=== PATIENT | male | born 1970 | race Two or more races ===

== ENCOUNTER 2021-04-26 19:07 | Emergency (ER) | payer OTHER ==
[~2021-04-26] VITALS: Ht 182.9 cm; Wt 97.5 kg
[2021-04-26 19:09] VITALS: BP 161/98
--- NOTE | 2021-04-26 20:25 | NUR ---
PT AMBULATED TO BED 8
--- NOTE | 2021-04-26 21:00 | NUR ---
PATIENT BIB SELF FROM HOME FOR C/O RECTAL PAIN X 1.5 MONTHS. PATIENT STATES," I RAN OUT OF PAIN MEDICATIONS AND I CAN;T STAND THE PAIN. PATIENT STATES HAS ANAL FISSURE AND HAS A SCHEDULED SURGERY IN TWO WEEKS FOR REPAIR. PATIENT NOTED WITH PURLUENT DRAINAGE COMING FROM RECTUM. PATIENT AFEBRILE. MEDHX: ANAL FISSURE NKA
--- NOTE | 2021-04-26 21:00 | NUR ---
ERMD AT BEDSIDE FOR MEDICAL EXAM. Female Supervisor [employer] accompanied female patient for Rectal Exam.
[2021-04-26] MEDS ORDERED: HYDROcodone/APAP 5/325 MG 1 TAB TAB PO ONE (21:30)
[2021-04-26] MEDS ORDERED: AMOXIL/CLAVULANATE 875/125 MG 1 TAB PO ONE (21:30)
[2021-04-26] MEDS ORDERED: ACET-8386 PO (21:44)
[2021-04-26] MEDS ORDERED: AMOX-1000 PO (21:44)
[2021-04-26 22:04] VITALS: BP 148/86
--- NOTE | 2021-04-26 22:04 | NUR ---
Patient discharged with v/s stable. Written and verbal after care instructions given and explained. Patient alert, oriented and verbalized understanding of instructions. All questions addressed prior to discharge. ID band removed. Patient advised to follow up with PMD. Rx of NORCO 5-325, AUGMENTIN given. Patient educated on indication of medication including possible reaction and side effects. Opportunity to ask questions provided and answered. Patient is currently ambulatory with steady gait, able to walk unassisted. Positive gag reflex. Is not driving self for discharge out of facility.
== END 2021-04-26 22:04 | disposition home or self-care (01) ==
LOC: MED 19:07
DX: K61.1 Rectal abscess (principal)
CPT/HCPCS: 99283

== ENCOUNTER 2021-05-12 05:24 | Day surgery (SDC) | payer OTHER, SELFPAY ==
[~2021-05-12] VITALS: Ht 182.9 cm; Wt 95.3 kg
[~2021-05-12 05:24] MED LIST: ACET-8386 PO; AMOX-1000 PO
[2021-05-12] MEDS ORDERED: GELATIN SPONGE 100 1 SPG TP ONE (08:00)
[2021-05-12] MEDS ORDERED: BUPIVACAINE-MPF/EPI 0.25% 30 ML VIAL INJ ONE (08:00)
[2021-05-12] MEDS ORDERED: LIDOCAINE 1% 500 MG/50 ML VIAL ONE (08:00)
[2021-05-12] MEDS ORDERED: HYDROGEN PEROXIDE 3% 240 ML BTL TP ONE (08:01)
[2021-05-12] MEDS ORDERED: MIDAZOLAM 2 MG/2 ML VIAL ONE (08:35)
[2021-05-12] MEDS ORDERED: fentaNYL citrate 0.05 MG/ML VIAL ONE (08:35)
[2021-05-12] MEDS ORDERED: SUCCINYLCHOLINE CHLORIDE 200 MG/10 ML VIAL IVP ONE (08:38)
[2021-05-12] MEDS ORDERED: PROPOFOL 200 MG/20 ML VIAL IV ONE (08:38)
[2021-05-12] MEDS ORDERED: SEVOFLURANE 250 ML BTL INH ONE (08:40)
[2021-05-12] MEDS ORDERED: ONDANSETRON 4 MG/2 ML VIAL ONE (09:08)
[2021-05-12] MEDS ORDERED: DEXAMETHASONE 4 MG/ML VIAL ONE (09:08)
[2021-05-12] MEDS ORDERED: MEPERIDINE 50 MG/ML SYR ONE (09:13)
[2021-05-12] MEDS ORDERED: ONDANSETRON 4 MG/2 ML VIAL IVP PRN (09:40)
[2021-05-12] MEDS ORDERED: HYDROmorphone 1 MG/ML AMP IVP PRN (09:40)
[2021-05-12] MEDS ORDERED: MEPERIDINE 25 MG/ML SYR IVP PRN (09:40)
[2021-05-12] MEDS ORDERED: LACTATED RINGERS 1,000 ML IV SCH (09:40)
[2021-05-12] MEDS ORDERED: HYDROcodone/APAP 5/325 MG 1 TAB TAB PO SCH (10:25)
== END 2021-05-12 11:10 | disposition home or self-care (01) ==
LOC: MDS 05:24 → MMU 05:25 → MDS 11:10
PROVIDERS: ATTEND Surgery
DX: K60.3 Anal fistula (principal); Z79.899 Other long term (current) drug therapy
CPT/HCPCS: 46275; 71045; 87426; 88304; J0330; J1100; J2001; J2175; J2250; J2405; J2704; J3010; J3490; J7120

== ENCOUNTER 2022-12-29 07:32 | Day surgery (SDC) | payer OTHER ==
[~2022-12-29] VITALS: Ht 182.9 cm; Wt 102.1 kg
[~2022-12-29 07:32] MED LIST changes: -ACET-8386 PO; +ACET-8905 PO
[2022-12-29] MEDS ORDERED: LIDOCAINE 2% 100 MG/5 ML UJET TP ONE (08:39)
[2022-12-29] MEDS ORDERED: MIDAZOLAM 5 MG/5 ML VIAL ONE (08:39)
[2022-12-29] MEDS ORDERED: diphenhydrAMINE 50 MG/ML VIAL ONE (08:39)
[2022-12-29] MEDS ORDERED: fentaNYL citrate 0.05 MG/ML VIAL ONE (08:39)
[2022-12-29] MEDS ORDERED: fentaNYL citrate 0.05 MG/ML VIAL IVP ONE (09:35)
[2022-12-29] MEDS ORDERED: MIDAZOLAM 5 MG/5 ML VIAL IV ONE (09:35)
== END 2022-12-29 10:00 | disposition home or self-care (01) ==
LOC: MMU 07:32 → MDS 07:32
PROVIDERS: ATTEND Internal Medicine Gastroenterology
DX: Z12.11 Encounter for screening for malignant neoplasm of colon (principal); D12.0 Benign neoplasm of cecum; D12.5 Benign neoplasm of sigmoid colon
CPT/HCPCS: 45380; 45385; 88305; J2250; J3010; J1200